=== PATIENT | male | born 1970 | race Caucasian/White ===

== ENCOUNTER → 2023-01-14 | Day surgery (SDC) | payer OTHER | LOC: CJX 07:23 → EDSTATUS 08:00 | PROVIDERS: ATTEND Orthopaedic Surgery | PROC: BP29YZZ Computerized Tomography (CT Scan) of Left Shoulder using Other Contrast (ICD-10-PCS; principal; 2023-01-14) | DX: M24.812 Other specific joint derangements of left shoulder, not elsewhere classified (principal); S46.012A Strain of muscle(s) and tendon(s) of the rotator cuff of left shoulder, initial encounter; X58.XXXA Exposure to other specified factors, initial encounter | CPT/HCPCS: 23350 ==